=== PATIENT | female | born 1970 ===

== ENCOUNTER 2018-01-13 10:46 | Emergency (ER) | payer OTHER ==
[~2018-01-13] VITALS: Ht 162.6 cm; Wt 66.2 kg
[2018-01-13] MEDS ORDERED: PROZAC20 MG PO (11:04)
[2018-01-13] MEDS ORDERED: COZAAR50 MG PO (11:04)
[2018-01-13] MEDS ORDERED: SINGULAIR10 MG PO (11:05)
[2018-01-13] MEDS ORDERED: BUSPIRONE HCL15 MG PO (11:06)
== END 2018-01-13 20:34 | disposition home or self-care (01) ==
LOC: ER 10:46
DX: N83.292 Other ovarian cyst, left side (principal)

== ENCOUNTER 2022-04-30 04:47 | Emergency (ER) | payer OTHER ==
[~2022-04-30] VITALS: Ht 162.6 cm; Wt 68.0 kg
[~2022-04-30 04:47] MED LIST: BUSPIRONE HCL15 MG PO; COZAAR50 MG PO; PROZAC20 MG PO; SINGULAIR10 MG PO
[2022-04-30] MEDS ORDERED: ZESTRIL10 M1 (04:52)
[2022-04-30] MEDS ORDERED: LIPITOR40 M1 (04:52)
== END 2022-04-30 10:50 | disposition home or self-care (01) ==
LOC: ER 04:47
DX: R10.31 Right lower quadrant pain (principal); N13.2 Hydronephrosis with renal and ureteral calculous obstruction; I10 Essential (primary) hypertension